=== PATIENT | male | born 1935 | race Caucasian/White ===

== ENCOUNTER → 2021-08-30 10:33 | Outpatient (BNVA) | payer MEDICARE, SELFPAY | PROVIDERS: PCP Internal Medicine; Visit Provider Nurse Practitioner Family | DX: R41.89 Other symptoms and signs involving cognitive functions and awareness (principal); R41.82 Altered mental status, unspecified | CPT/HCPCS: 99212 ==

== ENCOUNTER 2021-10-03 13:38 | Outpatient (REF) | payer MEDICARE, SELFPAY ==
--- NOTE | ~2021-10-03 | MR_ITS ---
EXAMINATION: BRAIN MRI WITHOUT CONTRAST CLINICAL INFORMATION: Cognitive dysfunction. Memory loss. COMPARISON: No relevant prior imaging. TECHNIQUE: Multiplanar MR imaging of the brain was performed without contrast. FINDINGS: There are scattered nonspecific foci of T2 FLAIR signal hyperintensity within the supratentorial white matter. No acute territorial infarct. No pathological magnetic susceptibility artifact. Intracranial vascular flow voids are grossly maintained. There is loss of parenchymal volume within ex vacuo enlargement of the lateral and third ventricles. There is no intracranial mass effect or abnormal extra-axial collection. Midline structures including the cervicomedullary junction are normal. No acute bone marrow signal changes. There is no mastoid or middle ear effusion. Mild paranasal sinus disease primarily affecting the ethmoid air cells and there is a small retention cysts within the alveolar recess of the right maxillary sinus. Globes and orbits are symmetric. MR/MR brain wo con w neuroquant IMPRESSION: There is loss of parenchymal volume and scattered chronic small vessel ischemic changes primarily involving the periventricular white matter. No evidence of acute territorial infarct or hemorrhage.
== END 2021-10-03 13:39 | disposition home or self-care (01) ==
LOC: HO.MRI 13:38
PROVIDERS: PCP Internal Medicine; Visit Provider Nurse Practitioner Family
DX: R41.89 Other symptoms and signs involving cognitive functions and awareness (principal)
CPT/HCPCS: 70551; 76377